=== PATIENT | female | born 1965 | race Two or more races ===

== ENCOUNTER 2024-09-02 12:50 | Emergency (ER) | payer OTHER ==
[~2024-09-02] VITALS: Ht 160 cm; Wt 69.9 kg
[2024-09-02 13:05] VITALS: BP 157/82; PULSE 86; RESP 14; TEMP 97.9; O2SAT 95
== END 2024-09-02 15:36 | disposition left against medical advice (07) ==
LOC: ER 12:50
DX: M54.2 Cervicalgia (principal); Z53.21 Procedure and treatment not carried out due to patient leaving prior to being seen by health care provider